=== PATIENT | male | born 1955 | race Caucasian/White ===

== ENCOUNTER → 2019-04-13 | Outpatient (CLI) | payer OTHER ==
[~2019-04-13] MED LIST: ASA81BEC PO; B COMPLEX1 EACH PO; HYDROCODON-ACE1 EAC8; PREDNISONE 20 M20 M1 PO; SUDAFED PE SIN1 EACH PO; VALTREX1000 MG PO; VITAMINC500 PO; ZYRTEC10 MG PO
== END ==
LOC: M.RAD 16:20
DX: M19.041 Primary osteoarthritis, right hand (principal); M25.531 Pain in right wrist